=== PATIENT | male | born 1960 | race Caucasian/White ===

== ENCOUNTER 2022-01-09 21:14 | Emergency (ER) | payer SELFPAY ==
[~2022-01-09] VITALS: Ht 165.1 cm; Wt 75.0 kg
[2022-01-09 23:29] LABS: BASOPHILS % 0.6 % (0.0-2.0); EOSINOPHILS % 1.9 % (0.0-5.0); HEMOGLOBIN. 15.4 g/dL (14.0-18.0); LYMPHOCYTES % 22.9 % (20.0-50.0); MEAN CORPUSCULAR HEMOGLOBIN 29.8 pg (28.0-32.0); MEAN CORPUSCULAR VOLUME 86.9 fL (80.0-94.0); MEAN PLATELET VOLUME 8.3 fl (7.4-10.4); NEUTROPHILS % 63.6 % (40.0-76.0); PLATELET 304 x1000/uL (130-400); RED BLOOD CELL COUNT 5.18 mill/uL (4.7-6.1); RED CELL DISTRIBUTION WIDTH 13.6 % (11.6-14.6)
[2022-01-09 23:34] LABS: CHLORIDE 108 mEq/L (98-107)
[2022-01-09 23:40] LABS: ETHANOL BLOOD < 10 mg/dL
[2022-01-10 02:41] VITALS: BP 104/65
[2022-01-10] MEDS ORDERED: NALO4SPR BOTHNSTRLS (02:44)
== END 2022-01-10 03:45 | disposition home or self-care (01) ==
LOC: EDBD 21:14 → ER 21:14
DX: T40.711A Poisoning by cannabis, accidental (unintentional), initial encounter (principal); R41.82 Altered mental status, unspecified; Y92.89 Other specified places as the place of occurrence of the external cause
CPT/HCPCS: 36415; 80053; 80320; 82962; 85025; 99283; G0480

== ENCOUNTER 2022-01-10 07:36 | Emergency (ER) | payer SELFPAY ==
[~2022-01-10] VITALS: Ht 175.3 cm; Wt 77.0 kg
[~2022-01-10 07:36] MED LIST: NALO4SPR BOTHNSTRLS
[2022-01-10 09:04] LABS: BASOPHILS % 0.3 % (0.0-2.0); EOSINOPHILS % 1.1 % (0.0-5.0); HEMATOCRIT. 47.6 % (42.0-52.0); HEMOGLOBIN. 15.9 g/dL (14.0-18.0); MEAN CORPUSCULAR HEMOGLOBIN 29.2 pg (28.0-32.0); MEAN CORPUSCULAR VOLUME 87.5 fL (80.0-94.0); MEAN PLATELET VOLUME 8.4 fl (7.4-10.4); MONOCYTES % 5.6 % (2.0-8.0); PLATELET 316 x1000/uL (130-400); RED BLOOD CELL COUNT 5.44 mill/uL (4.7-6.1); RED CELL DISTRIBUTION WIDTH 13.6 % (11.6-14.6)
[2022-01-10 09:13] LABS: CHLORIDE 106 mEq/L (98-107)
[2022-01-10 09:17] LABS: ETHANOL BLOOD < 10 mg/dL
[2022-01-10 09:30] VITALS: BP 121/86
[2022-01-10] MEDS ORDERED: OLANZAPINE 2.5MG TABLET PO SCH (10:00)
== END 2022-01-10 10:50 | disposition home or self-care (01) ==
LOC: ER 07:36
DX: F91.8 Other conduct disorders (principal); F12.10 Cannabis abuse, uncomplicated
CPT/HCPCS: 36415; 80053; 80320; 85025; 99283; G0480

== ENCOUNTER 2022-01-10 11:33 | Emergency (ER) | payer SELFPAY ==
[~2022-01-10] VITALS: Ht 165.1 cm; Wt 77.0 kg
[2022-01-10 13:45] VITALS: BP 121/67
== END 2022-01-10 13:45 | disposition home or self-care (01) ==
LOC: ER 11:33
DX: F91.8 Other conduct disorders (principal); F12.10 Cannabis abuse, uncomplicated; Z59.00 Homelessness unspecified
CPT/HCPCS: 99283; Z7610